=== PATIENT | female | born 1955 | race Two or more races ===

== ENCOUNTER → 2022-08-04 | Outpatient (REF) | payer MEDICARE, BC | LOC: M SFHCWAGY 17:18 | PROVIDERS: ATTEND Nurse Practitioner Family | DX: Z12.4 Encounter for screening for malignant neoplasm of cervix (principal) | CPT/HCPCS: 87624; G0123 ==

== ENCOUNTER → 2023-01-19 | Outpatient (CLI) | payer MEDICARE ==
[2023-01-19 11:34] LABS: BASO # 0.1 10^3/uL (0.0-0.2); BASO % 0.8 % (0.0-1.0); EOS # 0.2 10^3/uL (0.0-0.5); EOS % 1.9 % (0.0-3.0); HEMATOCRIT 43.8 % (36.0-47.0); HEMOGLOBIN 13.8 g/dl (12.0-15.5); LYMPH # 1.9 10^3/uL (1.5-5.0); MEAN CORPUSCULAR HEMOGLOBIN 29.6 pg (27.0-33.0); MEAN CORPUSCULAR HGB CONC 31.5 g/dl (32.0-36.5); MEAN CORPUSCULAR VOLUME 93.8 fl (80.0-96.0); MONO # 0.7 10^3/uL (0.0-0.8); MONO % 8.5 % (2.0-8.0); NEUTROPHILS # 5.4 10^3/uL (1.5-8.5); NEUTROPHILS % 64.6 % (36.0-66.0); PLATELET COUNT, AUTOMATED 371 10^3/uL (150-450); RED BLOOD COUNT 4.67 10^6/uL (4.00-5.40); WHITE BLOOD COUNT 8.4 10^3/uL (4.0-10.0)
[2023-01-19 11:57] LABS: ALKALINE PHOSPHATASE 85 U/L (46-116); ALT/SGPT 15 U/L (7.0-40); AST/SGOT 8 U/L (<34); BILIRUBIN,TOTAL 0.5 MG/DL (0.3-1.2); BLOOD UREA NITROGEN 14 MG/DL (9-23); CALCIUM LEVEL 10.2 MG/DL (8.3-10.6); CARBON DIOXIDE LEVEL 30 MMOL/L (20-31); CHLORIDE LEVEL 104 MMOL/L (98-107); GLOMERULAR FILTRATION RATE > 60.0 (>45); GLUCOSE, FASTING 96 MG/DL (74-106); POTASSIUM SERUM 4.3 MMOL/L (3.5-5.1); SODIUM LEVEL 140 MMOL/L (136-145)
[2023-01-19 11:59] LABS: THYROID STIMULATING HORMONE 0.775 uIU/ML (0.55-4.78)
== END ==
LOC: M LAB 10:37
PROVIDERS: ATTEND Physician Assistant
DX: E83.52 Hypercalcemia (principal); R53.83 Other fatigue

== ENCOUNTER 2023-01-30 20:18 | Emergency (ER) | payer MEDICARE ==
[~2023-01-30] VITALS: Ht 167.6 cm; Wt 86.3 kg
[2023-01-30 20:21] VITALS: TEMP 98.8
[2023-01-30] MEDS ORDERED: ONDANSETRON 4MG 2ML VIAL IV ONE (23:00)
[2023-01-30] MEDS ORDERED: HYDROMORPHONE HCL 0.5 MG/ 0.5 ML SYRINGE IV ONE (23:00)
[2023-01-30] MEDS ORDERED: LIDOCAINE 1% MDV 20ML VIAL SC ONE (23:05)
[2023-01-30 23:45] VITALS: BP 172/80
[2023-01-30 23:48] VITALS: O2SAT 97
[2023-01-31] MEDS ORDERED: HYDR-3713 PO (00:07)
[2023-01-31] MEDS ORDERED: NORCO 5/325MG TABLET (HOME DOSE PACK) PO ONE (00:10)
== END 2023-01-31 00:29 | disposition home or self-care (01) ==
LOC: M ED 20:18
DX: S52.125A Nondisplaced fracture of head of left radius, initial encounter for closed fracture (principal); S62.202A Unspecified fracture of first metacarpal bone, left hand, initial encounter for closed fracture; W17.89XA Other fall from one level to another, initial encounter; Y92.009 Unspecified place in unspecified non-institutional (private) residence as the place of occurrence of the external cause; Y93.89 Activity, other specified; Y99.8 Other external cause status; K21.9 Gastro-esophageal reflux disease without esophagitis
CPT/HCPCS: 73060; 73080; 73110; 96374; 96375; 99284; J1170; J2405

== ENCOUNTER → 2023-02-10 | Outpatient (CLI) | payer MEDICARE ==
[~2023-02-10] MED LIST: HYDR-3713 PO
== END ==
LOC: M SOG 08:11
PROVIDERS: ATTEND Physician Assistant
DX: S52.125D Nondisplaced fracture of head of left radius, subsequent encounter for closed fracture with routine healing (principal)

== ENCOUNTER → 2025-04-22 | Outpatient (REF) | payer MEDICARE | LOC: M PLALAB 09:32 | PROVIDERS: ATTEND Nurse Practitioner Family | DX: N89.8 Other specified noninflammatory disorders of vagina (principal) ==

== ENCOUNTER 2025-07-09 12:21 | Day surgery (SDC) | payer MEDICARE ==
[~2025-07-09] VITALS: Ht 167.6 cm; Wt 81.9 kg
[~2025-07-09 12:21] MED LIST changes: +FAMO40TA3 PO; +KETOROLAC 30 MG/ML 1 ML VIAL As Ordered ONE; +LIDOCAINE 2% 100 MG/5 ML SDV (FOR ANES.) As Ordered ONE; +MULTTAB61 PO; +ONDANSETRON 4MG/2ML VIAL As Ordered ONE; +PANT20TA6 PO; +ROCURONIUM BROMIDE 50MG/5ML VIAL As Ordered ONE; +SYST1SOL4 OU; +dexAMETHasone 4 MG/ML 1 ML VIAL As Ordered ONE; +eye promise restore PO
[2025-07-09 13:05] LABS: PLATELET COUNT, AUTOMATED 380 10^3/uL (150-450)
[2025-07-09] MEDS ORDERED: MIDAZOLAM INJ 2 MG/2 ML VIAL As Ordered ONE (13:22)
[2025-07-09] MEDS: ceFAZolin SOD 2 GM IV ONCE IV ONE (15:20)
[2025-07-09] MEDS ORDERED: ACETAMINOPHEN 1000MG/100ML IV BAG As Ordered ONE (15:27)
[2025-07-09] MEDS ORDERED: SUGAMMADEX SODIUM 200 MG/2 ML VIAL As Ordered ONE (15:42)
[2025-07-09] MEDS ORDERED: GLYCOPYRROLATE INJ 0.2 MG/ML 2 ML VIAL As Ordered ONE (15:48)
[2025-07-09] MEDS ORDERED: HYDROmorphone HCL 2 MG/ML 1 ML VIAL As Ordered ONE (16:39)
[2025-07-09] MEDS: ESTROGENS VAGINAL CREAM 30 GM As Ordered ONE (17:17)
[2025-07-09] MEDS ORDERED: HYDROMORPHONE HCL 0.5 MG/0.5 ML SYRINGE IV PRN (17:20)
[2025-07-09] MEDS ORDERED: MORPHINE 2 MG/ML 1 ML VIAL IV PRN (17:20)
[2025-07-09] MEDS ORDERED: LR 1,000 ML IV SCH (17:20)
[2025-07-09] MEDS ORDERED: ONDANSETRON 4MG/2ML VIAL IV PRN ×2 (17:20→19:10)
[2025-07-09 19:35] VITALS: BP 137/66; TEMP 98.3; O2SAT 92
[2025-07-09 20:05] VITALS: BP 133/63; TEMP 98; O2SAT 93
[2025-07-09] MEDS ORDERED: PROP1DRO OU (20:14)
[2025-07-09] MEDS ORDERED: HOME MED LIST COMPLETE! XX SCH (20:15)
[2025-07-09 20:35] VITALS: BP 121/59; TEMP 98.2; O2SAT 95
[2025-07-09 21:45] VITALS: BP 137/64; TEMP 98.3; O2SAT 94
[2025-07-09] MEDS: DOCUSATE SODIUM 100 MG CAPSULE PO SCH (22:06)
[2025-07-09] MEDS: FAMOTIDINE 20 MG TAB PO SCH (22:06)
[2025-07-09] MEDS: LR 1,000 ML IV SCH (22:09)
[2025-07-09] MEDS: KETOROLAC 30 MG/ML 1 ML VIAL IV SCH (22:26)
[2025-07-09 22:30] VITALS: BP 137/62; TEMP 98.4; O2SAT 94
[2025-07-09 23:30] VITALS: BP 137/65; TEMP 98.7; O2SAT 95
[2025-07-10 00:30] VITALS: BP 128/68; TEMP 98.2; O2SAT 95
[2025-07-10 06:00] VITALS: BP 134/66; TEMP 98.1; O2SAT 95
[2025-07-10 07:38] VITALS: O2SAT 93
[2025-07-10 07:54] LABS: BASO # 0.0 10^3/uL (0.0-0.2); BASO % 0.3 % (0.0-1.0); EOS # 0.0 10^3/uL (0.0-0.5); EOS % 0.0 % (0.0-3.0); LYMPH # 2.4 10^3/uL (1.5-5.0); LYMPH % 15.8 % (24.0-44.0); MONO # 1.2 10^3/uL (0.0-0.8); MONO % 7.9 % (2.0-8.0); NEUTROPHILS # 11.5 10^3/uL (1.5-8.5); NEUTROPHILS % 75.7 % (36.0-66.0); PLATELET COUNT, AUTOMATED 390 10^3/uL (150-450)
[2025-07-10 08:00] VITALS: TEMP 99.4; O2SAT 92
[2025-07-10] MEDS ORDERED: PERCOCET PO (08:22)
[2025-07-10] MEDS ORDERED: ACET-897 PO (08:22)
[2025-07-10] MEDS ORDERED: IBUP80TA PO (08:22)
[2025-07-10] MEDS ORDERED: COLA100C5 PO (08:22)
[2025-07-10 08:33] VITALS: BP 148/70; O2SAT 96
[2025-07-11] MEDS ORDERED: IBUPROFEN 800 MG TAB PO SCH (01:00)
== END 2025-07-10 10:50 | disposition home or self-care (01) ==
LOC: M SDC 12:21 → M PED 20:03 → M SDC 07-10 10:50
PROVIDERS: ATTEND Specialist
DX: N81.3 Complete uterovaginal prolapse (principal); K21.9 Gastro-esophageal reflux disease without esophagitis; Z79.899 Other long term (current) drug therapy; Z90.710 Acquired absence of both cervix and uterus
CPT/HCPCS: 36415; 57240; 57283; 85025; 85027; 86850; 86900; 86901; G0378; J0131; J0665; J0688; J1100; J1171; J1596; J1885; J2250; J2405; J3010

== ENCOUNTER → 2025-07-24 | Outpatient (REF) | payer MEDICARE ==
[~2025-07-24] MED LIST changes: +ACET-897 PO; +COLA100C5 PO; +IBUP80TA PO; -KETOROLAC 30 MG/ML 1 ML VIAL As Ordered ONE; -LIDOCAINE 2% 100 MG/5 ML SDV (FOR ANES.) As Ordered ONE; -ONDANSETRON 4MG/2ML VIAL As Ordered ONE; +PERCOCET PO; +PROP1DRO OU; -ROCURONIUM BROMIDE 50MG/5ML VIAL As Ordered ONE; -dexAMETHasone 4 MG/ML 1 ML VIAL As Ordered ONE
== END ==
LOC: M PLALAB 11:44
PROVIDERS: ATTEND Student in an Organized Health Care Education/Training Program
DX: N89.8 Other specified noninflammatory disorders of vagina (principal)